=== PATIENT | female | born 2000 | race Asian ===

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

== ENCOUNTER → 2022-10-08 11:30 | Outpatient (CLI) | payer OTHER, MEDICAID, SELFPAY ==
[2022-10-09 10:00] LABS: RPR Screen Non Reactive (Non Reactive)
[2022-10-09 11:36] LABS: Rubeola Measles IgG > 300.0 AU/mL (Immune >16.4)
[2022-10-10 13:00] LABS: Mumps Virus IgG Antibody 18.7 AU/mL (Immune >10.9)
== END ==
PROVIDERS: PCP Family Medicine; Referring Provider Physician Assistant; Visit Provider Physician Assistant
DX: Z71.84 Encounter for health counseling related to travel (principal)
CPT/HCPCS: 36415; 86592; 86735; 86762; 86765